=== PATIENT | male | born 1995 | race Caucasian/White ===

== ENCOUNTER 2017-01-21 22:54 | Inpatient (IN) | payer BC ==
[~2017-01-21] VITALS: Ht 193 cm; Wt 82.6 kg
[2017-01-21] MEDS ORDERED: SODIUM CHLORIDE 0.9% 1000ML 1,000 ML IV STA (23:51)
[2017-01-21] MEDS ORDERED: KETOROLAC TROMETHAMINE 30 MG/ML VIAL IV STA (23:51)
[2017-01-22 00:36] LABS: BASO % 0.1 %; BASO ABS # 0.01 K/uL (0-0.2); COMPLETE YES; HEMATOCRIT 40.4 % (42-52); IG% 0.4 %; LYMPH % 18.4 %; LYMPH ABS # 1.47 K/uL (1.2-3.4); MEAN CELL VOLUME 82.3 fL (80-100); MEAN CORPUSCULAR HEMOGLOBIN 28.3 pg (25-34); MEAN CORPUSCULAR HGB CONC 34.4 g/dl (32-36); MEAN PLATELET VOLUME 9.4 fL (7.4-10.4); NEUT % 70.1 %; PLATELET COUNT 289 K/uL (130-400); RED BLOOD COUNT 4.91 M/uL (4.7-6.1); WHITE BLOOD COUNT 8.01 K/uL (4.8-10.8)
[2017-01-22 00:46] LABS: URINE APPEARANCE CLEAR (CLEAR); URINE BILIRUBIN NEG (NEG); URINE COLOR YELLOW; URINE NITRITE NEG (NEG); URINE PH 5.5 (4.5-7.5); URINE SPECIFIC GRAVITY 1.001 (1.000-1.030); UROBILINOGEN NEG (NEG)
[2017-01-22 00:49] LABS: MANUAL MICROSCOPIC REQUIRED? NO; REVIEW REQ? NO
[2017-01-22 00:55] LABS: BUN/CREATININE RATIO 10.2 (10-20); CALCIUM 8.8 mg/dl (8.5-10.1); CREATININE 1.9 mg/dl (0.60-1.40); POTASSIUM 3.3 mmol/L (3.5-5.1)
[2017-01-22] MEDS ORDERED: SODIUM CHLORIDE 0.9% 1000ML 1,000 ML IV STA (01:29)
[2017-01-22] MEDS ORDERED: MAGNESIUM HYDROXIDE SUSP 30 ML UDC PO PRN (02:30)
[2017-01-22] MEDS ORDERED: ONDANSETRON INJ 2 MG/ML 2 ML VIAL IV PRN (02:30)
[2017-01-22] MEDS ORDERED: POLYETHYLENE (MIRALAX) 17 GM PACK PO PRN (02:30)
[2017-01-22] MEDS ORDERED: ALUMINUM/MAGNESIUM/SIMETH (MAALOX MAX) 30 ML UDC PO PRN (02:30)
[2017-01-22] MEDS ORDERED: ACETAMINOPHEN 325 MG TAB PO PRN (02:30)
[2017-01-22 03:46] LABS: LYME DISEASE AB IGG NEG (NEG); LYME DISEASE AB IGM NEG (NEG)
[2017-01-22 03:50] VITALS: BP 120/72; PULSE 45; TEMP 36.5; O2SAT 99; Ht 193 cm; Wt 82.6 kg
--- NOTE | 2017-01-22 03:50 | History and Physical ---
History & Physical Date & Time of Service: Jan 22, 2017 at 03:44 Chief Complaint: Back Pain, Constipation, Stomach Pain, No Appetite Primary Care Physician: No Doctor, Assigned History of Present Illness Source: patient This is a very pleasant 21-year-old male with no remarkable past medical history who presents with 1 week of right lower back pain. He notes being in his usual state of health until approximately one week ago when he started developing a alternating dull/sharp 7/10 back pain. Denies radiation of his symptoms anteriorly. He denies any alleviating or exacerbating factors at home. He stated that the pain is constant. He denies any dysuria or incontinence, but does feel that he has had some urinary frequency and nocturia since the back pain started. He denies blood in the urine He denies fevers chills or night sweats. He did vomit once in the past week, but denies persistence of nausea. He denies diarrhea, but has been constipated for the past 3 days His appetite has been poor since symptoms started He denies any weight changes Otherwise he denies any cardiorespiratory symptoms, including chest pain, shortness of breath, coughing, wheezing, palpitations, presyncope, orthopnea, lower extremity edema He denies starting or stopping any new medicines. He denies any drug use. He notes that he is participating in [employer] event this past weekend. He notes that he had no difficulty with this, though he does note that he was eating a lot of greasy food. 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 Physical Exam Vital Signs Date Time Temp Pulse Resp B/P Pulse Ox O2 Delivery O2 Flow Rate FiO2 01/22/17 01:36 50 18 137/70 98 01/22/17 01:02 58 01/21/17 23:04 37.3 95 18 131/92 97 Room Air General Appearance: WD/WN, no apparent distress Head: normocephalic, atraumatic Eyes: normal inspection, EOMI ENT: normal ENT inspection, hearing grossly normal, pharynx normal Neck: supple, no adenopathy, no JVD Respiratory/Chest: lungs clear, no respiratory distress Cardiovascular: regular rate, rhythm, no gallop, no murmur Abdomen/GI: normal bowel sounds, non tender, soft Back: normal inspection, no muscle spasm, + left CVA tenderness (mild, and certainly notes worse pain previously on the right) Extremities/Musculoskelatal: no calf tenderness, no pedal edema Neurologic/Psych: alert, normal mood/affect, oriented x 3 Skin: normal color, warm/dry, no rash Lymphatic: no adenopathy Diagnostics Laboratory Results Results Past 24 Hours Test 01/22/17 00:15 01/22/17 00:20 01/22/17 02:33 01/22/17 03:31 Range/Units Urine Color YELLOW Urine Appearance CLEAR CLEAR Urine pH 5.5 4.5-7.5 Urine Specific [place] 1.001 1.000-1.030 Urine Protein NEG NEG Urine Glucose (UA) NEG NEG Urine Ketones NEG NEG Urine Occult Blood TRACE NEG Urine Nitrite NEG NEG Urine Bilirubin NEG NEG Urine Urobilinogen NEG NEG Urine Leukocyte Esterase NEG NEG Urine WBC (Auto) 1-5 0-5 /hpf Urine RBC (Auto) 0-4 0-4 /hpf Urine Hyaline Casts (Auto) 0 0-5 /lpf Urine Epithelial Cells (Auto) 5-10 0-5 /lpf Urine Bacteria (Auto) NEG NEG White Blood Count 8.01 4.8-10.8 K/uL Red Blood Count 4.91 4.7-6.1 M/uL Hemoglobin 13.9 14.0-18.0 g/dL Hematocrit 40.4 42-52 % Mean Corpuscular Volume 82.3 80-100 fL Mean Corpuscular Hemoglobin 28.3 25-34 pg Mean Corpuscular Hemoglobin Concent 34.4 32-36 g/dl Platelet Count 289 130-400 K/uL Mean Platelet Volume 9.4 7.4-10.4 fL Neutrophils (%) (Auto) 70.1 % Lymphocytes (%) (Auto) 18.4 % Monocytes (%) (Auto) 10.0 % Eosinophils (%) (Auto) 1.0 % Basophils (%) (Auto) 0.1 % Neutrophils # (Auto) 5.62 1.4-6.5 K/uL Lymphocytes # (Auto) 1.47 1.2-3.4 K/uL Monocytes # (Auto) 0.80 0.11-0.59 K/uL Eosinophils # (Auto) 0.08 0-0.5 K/uL Basophils # (Auto) 0.01 0-0.2 K/uL RDW Standard Deviation 38.4 36.4-46.3 fL RDW Coefficient of Variation 12.7 11.5-14.5 % Immature Granulocyte % (Auto) 0.4 % Immature Granulocyte # (Auto) 0.03 0.00-0.02 K/uL Sodium Level 142 136-145 mmol/L Potassium Level 3.3 3.5-5.1 mmol/L Chloride Level 106 98-107 mmol/L Carbon Dioxide Level 28 21-32 mmol/L Anion Gap 8.0 3-11 mmol/L Blood Urea Nitrogen 19 7-18 mg/dl Creatinine 1.90 0.60-1.40 mg/dl Est Creatinine Clear Calc Drug Dose 73.1 ml/min Estimated GFR () 57.9 Estimated GFR (Non- 50.0 BUN/Creatinine Ratio 10.2 10-20 Random Glucose 98 70-99 mg/dl Osmolality 292 280-300 mOsm/kg Calcium Level 8.8 8.5-10.1 mg/dl Total Bilirubin 0.8 0.2-1 mg/dl Direct Bilirubin 0.2 0-0.2 mg/dl Aspartate Amino Transf (AST/SGOT) 9 15-37 U/L Alanine Aminotransferase (ALT/SGPT) 19 12-78 U/L Alkaline Phosphatase 56 45-117 U/L Total Creatine Kinase 141 39-308 U/L Total Protein 7.3 6.4-8.2 gm/dl Albumin 4.1 3.4-5.0 gm/dl Lipase 80 73-393 U/L Monoscreen NEG NEG Diagnostic Radiology CT abdomen Right lower quadrant mesenteric adenitis Hepatosplenomegaly Impression Assessment and Plan 21-year-old male who presents with acute kidney injury, and findings of hepatosplenomegaly on CT scan The relation between the 2 at this time is unclear. Reviewing his history there does not appear to be a familial history of hepatic or renal disease. He appears to be in relatively good health overall without any known medical conditions. At this time we will admit him for further workup. Our plan for him is as follows. Acute kidney injury - Creatinine 1.9; we do not have previous labs on him so baseline is unclear - CT scan does not reveal any notable findings, no stones or hydronephrosis - UA grossly unremarkable except for small amount of blood - CK pending for evaluation of rhabdomyolysis (Patient was at [employer] last week) - Urine and serum osmolality ordered - Urine electrolytes ordered - ESR and CRP to be checked with morning labs - IV rehydration with NSS + 20 mEq KCl at 125 ml/hr - Nephrology to be consult for additional recommendations on work-up Hepatosplenomegaly - No known history of hepatic disease - Notes minimal alcohol use; denies any drug use - Hepatitis panel ordered - Viral panel ordered: EBV, CMV, parvovirus, coxsackie - Lyme screen pending - No evidence of transaminitis; will follow daily CMP Mesenteric Adenitis - CT finding, may be cause/contributing factor to right-sided pain - Supportive management Hypokalemia - K 3.3 - Will rehydrate with NSS + 20 mEq KCl and follow labs DVT prophylaxis - SCD - NIRMAL stockings - Hold off on pharmacological anticoagulation at this time CODE STATUS - Level I full code - Designates his mother to be his substitute decision-maker if he cannot make decisions for himself Disposition - Med/Surg Level of Care Med/Surg Resuscitation Status FULL RESUSCITATION VTE Prophylaxis VTE Risk Assessment Done? Y/N: Yes Risk Level: Moderate Given or contraindicated: Treatment not indicated Assessment and Plan Attending Addendum: I have physically seen and examined this patient, have directed their medical care, have supervised the medical residents activities, and agree with the H&P as noted above, with the following changes: NONE The patient is awake, well-developed and adequately nourished, alert and oriented 3, normocephalic and atraumatic, lying in bed and in no acute distress. HEENT--PERRL, EOMI, mucous membranes and oropharynx dry. Neck--supple, no JVD or bruits, thyroid normal, trachea midline, no adenopathy. Heart--normal S1 and S2, no extra beats, no murmurs, rubs or gallops. Lungs--clear bilaterally with good air movement, no respiratory distress, no accessory muscle use. Abdomen--normal bowel sounds and soft, mildly tender epigastric area, and nondistended, no hernias or masses, no organomegaly. Extremities--no cyanosis, clubbing or edema. There are good distal pulses b/l. Dermatologic--normal skin turgor, normal color, warm and dry, no abnormal lymph nodes, no rash. Neurologic--cranial nerves II through XII grossly intact, motor and sensory examination normal. Rheumatologic--normal range of motion, nontender, muscles and joints. Psychiatric--normal affect. Assessment and Plan: Acute renal insufficiency--we'll hydrate with normal saline, and follow serial BMP and magnesium levels. He did recently participated at [employer], and even though his CK which has been added onto ED labs is normal, indicating no rhabdomyolysis, he did have a decreased oral intake during the dance which may have contributed to this acute process. CT of the abdomen and pelvis done without contrast does not show any significant kidney injury. Hepatosplenomegaly with normal laboratories--combined with his symptoms of fatigue and decreased oral intake, we will order a viral panel and EBV, CMV, parvovirus and coxsackie B virus, and hepatitis viral panel. Mesenteric adenitis--likely the cause of his decreased oral intake, most probably a viral process, and will be primarily treated with supportive therapy such as IV fluids.
[2017-01-22] MEDS ORDERED: SODIUM CHLORIDE 0.9% 1000ML 1,000 ML IV SCH (04:00)
--- NOTE | 2017-01-22 05:40 | EMERGENCY ROOM VISIT NOTE ---
History Report prepared by Crystalibfred: Jocelyn Mcbride Under the Supervision of: Dr. Jason Tellez M.D. First contact with patient: 23:48 Chief Complaint: FLANK PAIN Stated Complaint: BACK PAIN, CONSTIPATION, STOMACH PAIN, NO APPETITE History of Present Illness The patient is a 21 year old male who presents to the Emergency Room with complaints of waxing and waning right flank pain that began a few days ago. His current discomfort is a 7.5-8/10. It worsens with movement. The patient also complains of constipation, fatigue, decreased appetite, and intermittent nausea. He notes that he had an episode of vomiting 2 days ago but does not remember if his pain was intense at that time. He notes that he has been waking up in the middle of the night to urinate which is unusual for him. Currently, he has a "stomach ache" pain but denies and specific abdominal pain. He notes that there is a family history of appendicitis. He ate a small amount of salad about 8 hours ago and drank some water en route to the ED. Pt denies LOC, headache, fevers, chills, diaphoresis, visual changes, neck pain, chest pain, breathing difficulties, back pain, melena, hematochezia, numbness, weakness, lymphadenopathy, rash, or other complaints. Source of History: patient Onset: a few days ago Position: other (right flank) Symptom Intensity: 7.5-8/10 Timing: waxes/wanes Modifying Factors (Worsening): movement Associated Symptoms: + abdominal pain ("stomach ache"), + fatigue, + nausea , + urinary symptoms (slight increase in frequency), + vomiting (2 days ago) Note: Other symptoms: decreased appetite, constipation Review of Systems See HPI for pertinent positives and negatives. A total of ten systems were reviewed and were otherwise negative. Past Medical & Surgical Medical Problems: (1) Acute kidney injury (2) Hepatosplenomegaly (3) No Known Active Medical Problems Family History Appendicitis Social History Smoking Status: Never Smoker Housing Status: lives with roommate Occupation Status: [employer] student Current/Historical Medications No Active Prescriptions or Reported Meds Allergies Coded Allergies: No Known Allergies (Unverified , 01/22/17) Physical Exam Vital Signs Date Time Temp Pulse Resp B/P Pulse Ox O2 Delivery O2 Flow Rate FiO2 01/22/17 01:36 50 18 137/70 98 01/22/17 01:02 58 01/21/17 23:04 37.3 95 18 131/92 97 Room Air Physical Exam GENERAL: Awake, alert, well-appearing, in no distress HENT: Normocephalic, atraumatic. Oropharynx unremarkable. EYES: Normal conjunctiva. Sclera non-icteric. NECK: Supple. No nuchal rigidity. FROM. No JVD. RESPIRATORY: Clear to auscultation. CARDIAC: Regular rate, normal rhythm. Extremities warm and well perfused. Pulses equal. ABDOMEN: Soft, non-distended. Mild right lateral mid abdominal tenderness to palpation with some rebound. No guarding. No masses. RECTAL: Deferred. MUSCULOSKELETAL: Chest examination reveals no tenderness. The back is symmetrical on inspection without obvious abnormality. Right CVA tenderness to palpation. No joint edema. Right flank tenderness to palpation. LOWER EXTREMITIES: Calves are equal size bilaterally and non-tender. No edema. No discoloration. NEURO: Normal sensorium. No sensory or motor deficits noted. SKIN: No rash or jaundice noted. Medical Decision & Procedures ER Provider Diagnostic Interpretation: Radiology results as stated below per my review and radiologist interpretation. CT ABDOMEN & PELVIS: No renal calculi. No hydronephrosis. [id number] hepatosplenomegaly. Trace free fluid in the pelvis, nonspecific but considered abnormal in a male. The appendix is not definitively identified, but there are no pericecal inflammatory changes to suggest acute appendicitis. Prominence of mesenteric lymph nodes measuring up to 0.8 cm in short axis in the right lower quadrant, suggesting possible mesenteric adenitis. Evaluation of bowel limited by lack of oral contrast and underdistention, but there is no evidence of bowel obstruction. Radiologist: Leopoldo Sands MD Laboratory Results 01/22/17 00:20 Red Blood Count 4.91, Mean Corpuscular Volume 82.3, Mean Corpuscular Hemoglobin 28.3, Mean Corpuscular Hemoglobin Concent 34.4, Mean Platelet Volume 9.4, Neutrophils (%) (Auto) 70.1, Lymphocytes (%) (Auto) 18.4, Monocytes (%) (Auto) 10.0, Eosinophils (%) (Auto) 1.0, Basophils (%) (Auto) 0.1, Neutrophils # (Auto ) 5.62, Lymphocytes # (Auto) 1.47, Monocytes # (Auto) 0.80, Eosinophils # (Auto ) 0.08, Basophils # (Auto) 0.01 01/22/17 00:20 Test 01/22/17 00:15 01/22/17 00:20 01/22/17 02:33 Urine Color YELLOW Urine Appearance CLEAR (CLEAR) Urine pH 5.5 (4.5-7.5) Urine Specific [place] 1.001 (1.000-1.030) Urine Protein NEG (NEG) Urine Glucose (UA) NEG (NEG) Urine Ketones NEG (NEG) Urine Occult Blood TRACE (NEG) Urine Nitrite NEG (NEG) Urine Bilirubin NEG (NEG) Urine Urobilinogen NEG (NEG) Urine Leukocyte Esterase NEG (NEG) Urine WBC (Auto) 1-5 /hpf (0-5) Urine RBC (Auto) 0-4 /hpf (0-4) Urine Hyaline Casts (Auto) 0 /lpf (0-5) Urine Epithelial Cells (Auto) 5-10 /lpf (0-5) Urine Bacteria (Auto) NEG (NEG) White Blood Count 8.01 K/uL (4.8-10.8) Red Blood Count 4.91 M/uL (4.7-6.1) Hemoglobin 13.9 g/dL (14.0-18.0) Hematocrit 40.4 % (42-52) Mean Corpuscular Volume 82.3 fL (80-100) Mean Corpuscular Hemoglobin 28.3 pg (25-34) Mean Corpuscular Hemoglobin Concent 34.4 g/dl (32-36) Platelet Count 289 K/uL (130-400) Mean Platelet Volume 9.4 fL (7.4-10.4) Neutrophils (%) (Auto) 70.1 % Lymphocytes (%) (Auto) 18.4 % Monocytes (%) (Auto) 10.0 % Eosinophils (%) (Auto) 1.0 % Basophils (%) (Auto) 0.1 % Neutrophils # (Auto) 5.62 K/uL (1.4-6.5) Lymphocytes # (Auto) 1.47 K/uL (1.2-3.4) Monocytes # (Auto) 0.80 K/uL (0.11-0.59) Eosinophils # (Auto) 0.08 K/uL (0-0.5) Basophils # (Auto) 0.01 K/uL (0-0.2) RDW Standard Deviation 38.4 fL (36.4-46.3) RDW Coefficient of Variation 12.7 % (11.5-14.5) Immature Granulocyte % (Auto) 0.4 % Immature Granulocyte # (Auto) 0.03 K/uL (0.00-0.02) Anion Gap 8.0 mmol/L (3-11) Est Creatinine Clear Calc Drug Dose 73.1 ml/min Estimated GFR () 57.9 Estimated GFR (Non- 50.0 BUN/Creatinine Ratio 10.2 (10-20) Osmolality 292 mOsm/kg (280-300) Calcium Level 8.8 mg/dl (8.5-10.1) Total Bilirubin 0.8 mg/dl (0.2-1) Direct Bilirubin 0.2 mg/dl (0-0.2) Aspartate Amino Transf (AST/SGOT) 9 U/L (15-37) Alanine Aminotransferase (ALT/SGPT) 19 U/L (12-78) Alkaline Phosphatase 56 U/L (45-117) Total Creatine Kinase 141 U/L (39-308) Total Protein 7.3 gm/dl (6.4-8.2) Albumin 4.1 gm/dl (3.4-5.0) Lipase 80 U/L (73-393) Lyme Disease IgG Antibody NEG (NEG) Lyme Disease IgM Antibody NEG (NEG) Hepatitis B Surface Antigen NEG (NEG) Hepatitis C Antibody NEG (NEG) Monoscreen NEG (NEG) Laboratory results reviewed by me Medications Administered Medications (Trade) Dose Ordered Sig/Therese Route Start Time Stop Time Status Last Admin Dose Admin Sodium Chloride (Nss 1000ml) 1,000 ml @ 999 mls/hr Q1H1M STAT IV 01/21/17 23:51 01/22/17 00:51 DC 01/22/17 00:28 999 MLS/HR Ketorolac Tromethamine 10 mg 10 mg NOW STAT IV 01/21/17 23:51 01/21/17 23:53 DC 01/22/17 00:28 10 MG Sodium Chloride (Nss 1000ml) 1,000 ml @ 200 mls/hr Q5H STAT IV 01/22/17 01:29 01/22/17 03:54 DC 01/22/17 01:38 200 MLS/HR ED Course 2351: The patient was evaluated in room C6. A complete history and physical exam was performed. Ordered Toradol Inj 10 mg IV, NSS 1000 ml @ 999 mls/hr IV. 0125: Upon reexamination, the patient was feeling better. I discussed the test results and treatment plan with him. The patient will be evaluated for further management. 0129: Ordered NSS 1000 ml @ 200 mls/hr IV. 0230: I discussed the case with Dr. Rhys ALEXANDER Hospitalist. The patient will be evaluated for further management. Medical Decision Triage Nursing notes reviewed. The patient's presentation and history were concerning for flank pain. Etiologies such as renal colic, appendicitis, diverticulitis, mesenteric ischemia, aortic pathology, infections, inflammatory bowel disease, PUD, biliary pathology, UTI, as well as others were entertained. The patient was evaluated. He was uncomfortable. He requested something for pain. He was given a dose of IV Toradol. Urinalysis and blood work were performed. The patient underwent CT imaging. There is no definitive stone or emergent intra-abdominal process seen. Moderate stool and some mesenteric adenitis noted. The patient has some mild splenomegaly. His CBC was unremarkable. Chemistry panel was very concerning as his creatinine returned at 1.9. The patient was hydrated. Due to his acute kidney injury internal medicine was consulted for further evaluation and management. The patient was seen in the Emergency Room for further treatment. The chart was completed utilizing [employer] Speech voice recognition software. Grammatical errors, random word insertions, pronoun errors, and incomplete sentences are an occasional consequence of this system due to software limitations, ambient noise, and hardware issues. Any formal questions or concerns about the content, text, or information contained within the body of this dictation should be directly addressed to the physician for clarification. Consults Time Called: 0125 Consulting Physician: Dr. Rhys ALEXANDER Hospitalist Returned Call: 0230 I discussed the case with him. The patient will be evaluated for further management. Impression Primary Impression: Acute renal failure Additional Impression: Right flank pain Scribe Attestation The scribe's documentation has been prepared under my direction and personally reviewed by me in its entirety. I confirm that the note above accurately reflects all work, treatment, procedures, and medical decision making performed by me. Departure Information Dispostion Being Evaluated By Hospitalist Prescriptions No Active Prescriptions or Reported Meds Referrals No Doctor, Assigned (PCP) Patient Instructions My [facility] Problem Qualifiers
[2017-01-22] MEDS: NSS + 20MEQ KCL 1000ML 1,000 ML IV SCH ×3 (06:24→21:52)
[2017-01-22 07:37] VITALS: BP 122/78; PULSE 41; TEMP 36.4; O2SAT 99
--- NOTE | 2017-01-22 07:37 | DIAGNOSTIC IMAGING REPORT ---
ABDOMEN AND PELVIS CT WITHOUT CONTRAST CT DOSE: 694.89 mGy.cm HISTORY: Right-sided flank pain. TECHNIQUE: Multiaxial CT images of the abdomen and pelvis were performed without the use of intravenous and oral contrast according to the standard department stone protocol. COMPARISON STUDY: None. FINDINGS: The lung bases are clear. The unenhanced liver, gallbladder, pancreas, and adrenal glands are unremarkable. No renal stones or hydronephrosis. Suboptimal evaluation for bowel pathology due to the lack of intravenous and oral contrast. However, there is no definite bowel wall thickening or obstruction. Trace pelvic free fluid. Impression difficult to identify but likely resides within a retrocecal location and is normal in caliber. No periappendiceal inflammatory change to suggest acute appendicitis. A few prominent mesenteric lymph nodes. No retroperitoneal lymphadenopathy. Spleen is enlarged measuring 15 cm in length. No bladder wall thickening. No suspicious lytic or blastic osseous lesions. IMPRESSION: 1. No renal stones or hydronephrosis. 2. Suboptimal evaluation for bowel pathology. However, no definite bowel wall thickening or obstruction. 3. The appendix appears to be located within a retrocecal location and is within normal limits. 4. Trace pelvic free fluid. This is nonspecific but could be abnormal in a male. 5. Splenomegaly. Electronically signed by: Jorge Franklin M.D. 01/22/2017 7:36 AM Dictated Date/Time: 01/22/2017 7:28 AM
--- NOTE | 2017-01-22 10:15 | Family Medicine Progress Note ---
Progress Note Date of Service Jan 22, 2017.
[2017-01-22 10:53] LABS: BUN/CREATININE RATIO 9.5 (10-20); CALCIUM 8.2 mg/dl (8.5-10.1); CREATININE 1.7 mg/dl (0.60-1.40); POTASSIUM 3.5 mmol/L (3.5-5.1)
[2017-01-22 10:54] LABS: URINE APPEARANCE CLEAR (CLEAR); URINE BILIRUBIN NEG (NEG); URINE COLOR YELLOW; URINE NITRITE NEG (NEG); URINE PH 5.5 (4.5-7.5); URINE SPECIFIC GRAVITY 1.006 (1.000-1.030); UROBILINOGEN NEG (NEG)
[2017-01-22 10:57] LABS: MANUAL MICROSCOPIC REQUIRED? NO; REVIEW REQ? NO
[2017-01-22 11:29] LABS: BENZODIAZEPINE, URINE NEG (NEG); COCAINE,URINE NEG (NEG); PHENCYCLIDINE, URINE NEG (NEG)
--- NOTE | 2017-01-22 11:32 | Nephrology Consultation ---
Nephrology Consultation Date & Providers Date of Consultation: Jan 22, 2017. 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 Pain was intermittent lasting a few hrs and ranged in between 7 1/2 to 8 intensity. No known alleviating or aggravating factors. He decided to come in due to increasing severity /frequency of pain. He also reports fatigue and 1 episode of N/V on 01/19. He has been taking Ibuprofen since 01/15, He had been taking 2 pills/ day since Wednesday increased his dosage to 2 pills 2-3 x/day as of 3 days ago. Patient denies fevers/chills, change in stool, susan abdominal pain, hematuria, urgency, frequency, dysuria. He also denies recently strenuous activity other than his typical 2x/wk at the gym. He denies muscle pain, fatigue. 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 Patient has no previous hx of similar symptoms. No Past medical hx or Family Hx of Renal disease or Thrombosis. Patient is being consulted for MUSA with Cr of 1.9 on arrival. Past Medical/Surgical History Medical: Nil Surgical: Rhinoseptoplasty Allergies Coded Allergies: No Known Allergies (Unverified , 01/22/17) Inpatient Medications Current Inpatient Medications Medications (Trade) Dose Ordered Sig/Therese Route Start Time Stop Time Status Last Admin Dose Admin Acetaminophen (Tylenol Tab) 650 mg Q4H PRN PO 01/22/17 02:30 02/21/17 02:29 Al Hydrox/Mg Hydrox/Simethicone (Maalox Max Susp) 15 ml Q4H PRN PO 01/22/17 02:30 02/21/17 02:29 Magnesium Hydroxide (Milk Of Magnesia Susp) 30 ml Q6H PRN PO 01/22/17 02:30 02/21/17 02:29 Polyethylene (Miralax Powder Packet) 17 gm DAILY PRN PO 01/22/17 02:30 02/21/17 02:29 Ondansetron HCl 4 mg 4 mg Q6H PRN IV 01/22/17 02:30 02/21/17 02:29 Potassium Chloride/Sodium Chloride (Nss + 20meq KCl 1000ml) 1,000 ml @ 125 mls/hr Q8H IV 01/22/17 06:15 02/21/17 06:14 01/22/17 06:24 125 MLS/HR Family History Appendicitis Social History Smoking Status: Never Smoker Smokeless Tobacco Use: No Alcohol Use: socially (has not comsumed alcohol in 1 month) Drug Use: none Marital Status: single Housing Status: lives with roommate Occupation: [employer] student Review of Systems Constitutional: + fatigue, No chills, No fever, No sweats, No weakness, No weight loss ENT: No nasal symptoms, No sore throat Respiratory: No cough, No shortness of breath, No sputum Cardiovascular: No chest pain, No edema, No palpitations Abdomen: + nausea, No constipation, No diarrhea, No pain, No vomiting (x1 ( resolved)) Musculoskeletal: No calf pain, No muscle pain, No swelling Genitourinary - Male: No dysuria, No hematuria, No urinary frequency, No urinary urgency Neurologic: No numbness/tingling, No weakness Psychiatric: No substance abuse Integumentary: No itch, No rash Allergic / Immunologic: No environmental allergies, No food allergies, No seasonal allergies A complete review of systems was performed. Pertinent positives are noted above. All other systems are negative. Physical Exam Date Time Temp Pulse Resp B/P Pulse Ox O2 Delivery O2 Flow Rate FiO2 01/22/17 08:09 Room Air 01/22/17 07:37 36.4 41 14 122/78 99 Room Air 01/22/17 03:50 36.5 45 14 120/72 99 Room Air 01/22/17 03:50 99 Room Air 01/22/17 01:36 50 18 137/70 98 01/22/17 01:02 58 01/21/17 23:04 37.3 95 18 131/92 97 Room Air General Appearance: WD/WN, + mild distress Head: normocephalic, atraumatic Eyes: PERRL, EOMI Neck: supple, no JVD, trachea midline Respiratory/Chest: lungs clear, normal breath sounds, no respiratory distress Cardiovascular: regular rate, rhythm, no edema, no murmur, normal peripheral pulses Abdomen/GI: normal bowel sounds, non tender, soft, + pertinent finding (NO frnak abdominal tendernes, pain ellicited in the Right lower back on abdominal palpation) Back: no muscle spasm, normal range of motion, + right CVA tenderness Extremities/Musculoskelatal: no calf tenderness, no pedal edema, + pertinent finding Neurologic/Psych: alert, normal mood/affect, oriented x 3 Skin: normal color, warm/dry Laboratory Results Last 24 Hours Test 01/22/17 00:00 01/22/17 00:15 01/22/17 00:20 01/22/17 02:33 Urine Color YELLOW YELLOW Urine Appearance CLEAR CLEAR Urine pH 5.5 5.5 Urine Specific [place] 1.006 1.001 Urine Protein TRACE NEG Urine Glucose (UA) NEG NEG Urine Ketones NEG NEG Urine Occult Blood NEG TRACE Urine Nitrite NEG NEG Urine Bilirubin NEG NEG Urine Urobilinogen NEG NEG Urine Leukocyte Esterase NEG NEG Urine WBC (Auto) 1-5 /hpf 1-5 /hpf Urine RBC (Auto) 0-4 /hpf 0-4 /hpf Urine Hyaline Casts (Auto) 1-5 /lpf 0 /lpf Urine Epithelial Cells (Auto) 10-20 /lpf 5-10 /lpf Urine Bacteria (Auto) NEG NEG White Blood Count 8.01 K/uL Red Blood Count 4.91 M/uL Hemoglobin 13.9 g/dL Hematocrit 40.4 % Mean Corpuscular Volume 82.3 fL Mean Corpuscular Hemoglobin 28.3 pg Mean Corpuscular Hemoglobin Concent 34.4 g/dl Platelet Count 289 K/uL Mean Platelet Volume 9.4 fL Neutrophils (%) (Auto) 70.1 % Lymphocytes (%) (Auto) 18.4 % Monocytes (%) (Auto) 10.0 % Eosinophils (%) (Auto) 1.0 % Basophils (%) (Auto) 0.1 % Neutrophils # (Auto) 5.62 K/uL Lymphocytes # (Auto) 1.47 K/uL Monocytes # (Auto) 0.80 K/uL Eosinophils # (Auto) 0.08 K/uL Basophils # (Auto) 0.01 K/uL RDW Standard Deviation 38.4 fL RDW Coefficient of Variation 12.7 % Immature Granulocyte % (Auto) 0.4 % Immature Granulocyte # (Auto) 0.03 K/uL Sodium Level 142 mmol/L Potassium Level 3.3 mmol/L Chloride Level 106 mmol/L Carbon Dioxide Level 28 mmol/L Anion Gap 8.0 mmol/L Blood Urea Nitrogen 19 mg/dl Creatinine 1.90 mg/dl Est Creatinine Clear Calc Drug Dose 73.1 ml/min Estimated GFR () 57.9 Estimated GFR (Non- 50.0 BUN/Creatinine Ratio 10.2 Random Glucose 98 mg/dl Osmolality 292 mOsm/kg Calcium Level 8.8 mg/dl Total Bilirubin 0.8 mg/dl Direct Bilirubin 0.2 mg/dl Aspartate Amino Transf (AST/SGOT) 9 U/L Alanine Aminotransferase (ALT/SGPT) 19 U/L Alkaline Phosphatase 56 U/L Total Creatine Kinase 141 U/L Total Protein 7.3 gm/dl Albumin 4.1 gm/dl Lipase 80 U/L Lyme Disease IgG Antibody NEG Lyme Disease IgM Antibody NEG Hepatitis B Surface Antigen NEG Hepatitis C Antibody NEG Monoscreen NEG Test 01/22/17 07:11 01/22/17 10:16 Erythrocyte Sedimentation Rate 3 mm/hr C-Reactive Protein 0.39 mg/dl Sodium Level 145 mmol/L Potassium Level 3.5 mmol/L Chloride Level 111 mmol/L Carbon Dioxide Level 28 mmol/L Anion Gap 6.0 mmol/L Blood Urea Nitrogen 16 mg/dl Creatinine 1.70 mg/dl Est Creatinine Clear Calc Drug Dose 81.7 ml/min Estimated GFR () 66.3 Estimated GFR (Non- 57.2 BUN/Creatinine Ratio 9.5 Random Glucose 89 mg/dl Calcium Level 8.2 mg/dl Impression 21 yo M presented with 4 day hx of Acute RT lower back pain, N/V, Splenomegaly admitted with MUSA with Cr 1.9 MUSA - Cr of 1.9 on arrival, BUN/Cr ratio of 10.2 -UA with trace hematuria, no proteinuria, no casts - no baseline Cr available, no known previous hx of renal problems - MUSA most likely secondary to NSAID induced Tubulointerstitial nephritis. Glomerulonephritis unlikely given lack of proteinuria or significant hematuria. - Cannot rule out Prerenal secondary to dehydration, ATN -Rhabdomyolysis unlikely given normal CPK -F/u repeat PRP, urine Na, cr to calculate FENA. - Continue IV hydration Hypokalemia - 3.3 on arrival - agree with IV hydration 20 meq K -F/u Repeat PRP Back Pain s/p Toradol injection pain has improved significantly -Ct Abdomen pelvis negative for Renal stones, making this etiology of pain unlikely. Renal vein thrombosis considered but given lack of significant hematuria remains unlikely. -Pain may be musculoskeletal in origin and would be consistent with exam findings -Continue to monitor Splenomegaly etiology unknown CMV, EBV, Lyme disease, Parvo virus B19 coxsackie pending Mesenteric Adenitis -management per primary team Carlos Enrique Cabrales, PGY 1 Patient was seen and examined with Dr. Aaron saucedo 1 resident. discussed that history, physical exam findings and assessment and plan in detail. Agree with above documentation. 21-year-old young male with no significant past medical history, has not been on any medication, presented to the hospital with Rt flank pain, 1 episode of nausea and vomiting for 3-4 days. On admission imaging study with CT abdomen pelvis was unremarkable except finding of mild splenomegaly and masenteric adenitis. On admission he was found to have acute kidney injury, creatinine 1.9 and hypokalemia with no prior history of chronic kidney disease. Urinalysis was negative for significant proteinuria, pyuria or hematuria. patient reports taking NSAID for last 1 week for the flank pain. No prior history of recurrent hematuria, nonsmoker, no family history of hematuria, chronic kidney disease or end-stage renal disease. vital sign remained stable throughout hospital course, physical exam finding unremarkable except point tenderness in Rt flank. Differentials at this point include prerenal with nausea vomiting and NSAID use, NSAID induced tubular interstitial nephritis or other intrinsic renal disease which however seems less likely. With recent history of some nausea vomiting, GI symptom concern for HSP or IgA considering young age, seems less likely with no significant hematuria proteinuria. Unclear etiology for the new finding of mild splenomegaly but no retroperitoneal lymphadenopathy. no recent change in weight or other systemic symptoms. Repeat lab showed creatinine slightly improved to 1.7, other electrolyte acceptable. -- Continue to monitor renal function with renal panel in a.m., would not consider any other workup at this point -- unclear etiology for mesenteric adenitis and splenomegaly, management per primary team. Will follow. Resident Tracking Resident Involvement: Resident Care Provided Care Provided: [facility]
--- NOTE | 2017-01-22 15:32 | Progress Note ---
Subjective Date of Service: Jan 22, 2017. Subjective Pt evaluation today including: conversation w/ patient, conversation w/ family (mother Jessica over phone), physical exam, lab review, review of studies, conversation w/ hematology oncology consultant, review of inpatient medication list Pain: pain resolved PO Intake: adequate Voiding: no voiding problems patient resting comfortably, no issues overnight still with flank pain but less intense eating and drinking well, urinating a lot stated that he felt normal prior to [employer], was on his feet for 40 hours developed flank pain afterwards, took NSAIDs for the pain Problem List Medical Problems: (1) Acute renal failure Status: Acute (2) Right flank pain Status: Acute Review of Systems Constitutional: + fatigue, + weakness Abdomen: + pain (flank) All Other Systems: Reviewed and Negative Medications Current Inpatient Medications Medications (Trade) Dose Ordered Sig/Therese Route Start Time Stop Time Status Last Admin Dose Admin Acetaminophen (Tylenol Tab) 650 mg Q4H PRN PO 01/22/17 02:30 02/21/17 02:29 Al Hydrox/Mg Hydrox/Simethicone (Maalox Max Susp) 15 ml Q4H PRN PO 01/22/17 02:30 02/21/17 02:29 Magnesium Hydroxide (Milk Of Magnesia Susp) 30 ml Q6H PRN PO 01/22/17 02:30 02/21/17 02:29 Polyethylene (Miralax Powder Packet) 17 gm DAILY PRN PO 01/22/17 02:30 02/21/17 02:29 Ondansetron HCl 4 mg 4 mg Q6H PRN IV 01/22/17 02:30 02/21/17 02:29 Potassium Chloride/Sodium Chloride (Nss + 20meq KCl 1000ml) 1,000 ml @ 125 mls/hr Q8H IV 01/22/17 06:15 02/21/17 06:14 01/22/17 14:22 125 MLS/HR Objective Vital Signs Date Time Temp Pulse Resp B/P Pulse Ox O2 Delivery O2 Flow Rate FiO2 01/22/17 08:09 Room Air 01/22/17 07:37 36.4 41 14 122/78 99 Room Air 01/22/17 03:50 36.5 45 14 120/72 99 Room Air 01/22/17 03:50 99 Room Air 01/22/17 01:36 50 18 137/70 98 01/22/17 01:02 58 01/21/17 23:04 37.3 95 18 131/92 97 Room Air Physical Exam General Appearance: WD/WN, no apparent distress Eyes: normal inspection, EOMI, sclerae normal ENT: normal ENT inspection, hearing grossly normal, pharynx normal Neck: supple, no adenopathy, no JVD, trachea midline Respiratory/Chest: chest non-tender, lungs clear, normal breath sounds, no respiratory distress, no accessory muscle use Cardiovascular: regular rate, rhythm, no edema, no gallop, no JVD, no murmur Abdomen: normal bowel sounds, non tender, soft, no organomegaly, + pertinent finding (no CVA tenderness) Extremities: normal range of motion, non-tender, normal inspection, no pedal edema, no calf tenderness, pelvis stable Neurologic/Psychiatric: commercial credit head II-XII nml as tested, no motor/sensory deficits, alert, normal mood/affect, oriented x 3 Skin: normal color, warm/dry, no rash Lymphatic: no adenopathy Laboratory Results Last 24 Hours Test 01/22/17 00:00 01/22/17 00:15 01/22/17 00:20 01/22/17 02:33 Urine Color YELLOW YELLOW Urine Appearance CLEAR CLEAR Urine pH 5.5 5.5 Urine Specific [place] 1.006 1.001 Urine Protein TRACE NEG Urine Glucose (UA) NEG NEG Urine Ketones NEG NEG Urine Occult Blood NEG TRACE Urine Nitrite NEG NEG Urine Bilirubin NEG NEG Urine Urobilinogen NEG NEG Urine Leukocyte Esterase NEG NEG Urine WBC (Auto) 1-5 /hpf 1-5 /hpf Urine RBC (Auto) 0-4 /hpf 0-4 /hpf Urine Hyaline Casts (Auto) 1-5 /lpf 0 /lpf Urine Epithelial Cells (Auto) 10-20 /lpf 5-10 /lpf Urine Bacteria (Auto) NEG NEG Urine Osmolality 310 mOms/kg Urine Random Creatinine 79.0 mg/dl Urine Random Sodium 63 mEq/L Urine Random Potassium 14.9 mEq/L Urine Random Chloride 62 mEq/L Urine Opiates Screen NEG Urine Methadone, Qualitative NEG Urine Barbiturates NEG Urine Phencyclidine (PCP) Level NEG Ur Amphetamine/Methamphetamine NEG MDMA (Ecstasy) Screen NEG Urine Benzodiazepines Screen NEG Urine Cocaine Metabolite NEG Urine Marijuana (THC) NEG White Blood Count 8.01 K/uL Red Blood Count 4.91 M/uL Hemoglobin 13.9 g/dL Hematocrit 40.4 % Mean Corpuscular Volume 82.3 fL Mean Corpuscular Hemoglobin 28.3 pg Mean Corpuscular Hemoglobin Concent 34.4 g/dl Platelet Count 289 K/uL Mean Platelet Volume 9.4 fL Neutrophils (%) (Auto) 70.1 % Lymphocytes (%) (Auto) 18.4 % Monocytes (%) (Auto) 10.0 % Eosinophils (%) (Auto) 1.0 % Basophils (%) (Auto) 0.1 % Neutrophils # (Auto) 5.62 K/uL Lymphocytes # (Auto) 1.47 K/uL Monocytes # (Auto) 0.80 K/uL Eosinophils # (Auto) 0.08 K/uL Basophils # (Auto) 0.01 K/uL RDW Standard Deviation 38.4 fL RDW Coefficient of Variation 12.7 % Immature Granulocyte % (Auto) 0.4 % Immature Granulocyte # (Auto) 0.03 K/uL Sodium Level 142 mmol/L Potassium Level 3.3 mmol/L Chloride Level 106 mmol/L Carbon Dioxide Level 28 mmol/L Anion Gap 8.0 mmol/L Blood Urea Nitrogen 19 mg/dl Creatinine 1.90 mg/dl Est Creatinine Clear Calc Drug Dose 73.1 ml/min Estimated GFR () 57.9 Estimated GFR (Non- 50.0 BUN/Creatinine Ratio 10.2 Random Glucose 98 mg/dl Osmolality 292 mOsm/kg Calcium Level 8.8 mg/dl Total Bilirubin 0.8 mg/dl Direct Bilirubin 0.2 mg/dl Aspartate Amino Transf (AST/SGOT) 9 U/L Alanine Aminotransferase (ALT/SGPT) 19 U/L Alkaline Phosphatase 56 U/L Total Creatine Kinase 141 U/L Total Protein 7.3 gm/dl Albumin 4.1 gm/dl Lipase 80 U/L Lyme Disease IgG Antibody NEG Lyme Disease IgM Antibody NEG Hepatitis B Surface Antigen NEG Hepatitis C Antibody NEG Monoscreen NEG Test 01/22/17 07:11 01/22/17 10:16 Erythrocyte Sedimentation Rate 3 mm/hr C-Reactive Protein 0.39 mg/dl Sodium Level 145 mmol/L Potassium Level 3.5 mmol/L Chloride Level 111 mmol/L Carbon Dioxide Level 28 mmol/L Anion Gap 6.0 mmol/L Blood Urea Nitrogen 16 mg/dl Creatinine 1.70 mg/dl Est Creatinine Clear Calc Drug Dose 81.7 ml/min Estimated GFR () 66.3 Estimated GFR (Non- 57.2 BUN/Creatinine Ratio 9.5 Random Glucose 89 mg/dl Calcium Level 8.2 mg/dl Assessment and Plan 21-year-old male who presents with acute kidney injury, and findings of splenomegaly on CT scan Acute kidney injury: Cr initially 1.9, down to 1.7 over 12 hours with fluids, will repeat in the AM, making good urine based on his story of being normal prior to [facility], suspect a degree of rhabdomyolysis earlier in the week, concurrent use of NSAIDs his urine was + blood but no RBC, still with trace myoglobin? also, the NSAIDs could have caused ATN, tubular interstitial nephritis? full work up sent, reference labs appreciate nephrology consult continue fluids over night and repeat labs in the AM Splenomegaly (NOT hepatosplenomegaly as previously documented, live on CT scan was described as normal) could be a result of viral infection, does have mild tenderness LUQ, none in RUQ also with mesenteric adenitis, viral? viral work up sent out does have a h/o [place] in the past normal CBC Mesenteric Adenitis - CT finding, may be cause/contributing factor to right-sided pain - Supportive management Hypokalemia - K 3.3 - Will rehydrate with NSS + 20 mEq KCl and follow labs - resolved DVT prophylaxis - SCD - NIRMAL stockings - Hold off on pharmacological anticoagulation at this time CODE STATUS - Level I full code - Designates his mother to be his substitute decision-maker if he cannot make decisions for himself
[2017-01-22 15:46] VITALS: BP 114/75; PULSE 60; TEMP 36.7; O2SAT 99
[2017-01-22 23:24] VITALS: BP 145/75; PULSE 44; TEMP 36.4; O2SAT 97
[2017-01-23] MEDS: NSS + 20MEQ KCL 1000ML 1,000 ML IV SCH ×3 (05:38→22:00)
[2017-01-23 07:32] VITALS: BP 143/83; PULSE 59; TEMP 36.8; O2SAT 98
[2017-01-23 08:12] LABS: BASO % 0.1 %; BASO ABS # 0.01 K/uL (0-0.2); COMPLETE YES; EOS % 2.2 %; HEMATOCRIT 37.6 % (42-52); IG% 0.1 %; LYMPH % 20.7 %; LYMPH ABS # 1.48 K/uL (1.2-3.4); MEAN CELL VOLUME 81.2 fL (80-100); MEAN CORPUSCULAR HEMOGLOBIN 28.3 pg (25-34); MEAN CORPUSCULAR HGB CONC 34.8 g/dl (32-36); MEAN PLATELET VOLUME 9.7 fL (7.4-10.4); MONO % 7.1 %; NEUT % 69.8 %; PLATELET COUNT 233 K/uL (130-400); RED BLOOD COUNT 4.63 M/uL (4.7-6.1); WHITE BLOOD COUNT 7.16 K/uL (4.8-10.8)
[2017-01-23 08:39] LABS: BUN/CREATININE RATIO 6.4 (10-20); CALCIUM 8.7 mg/dl (8.5-10.1); CREATININE 1.7 mg/dl (0.60-1.40); POTASSIUM 3.6 mmol/L (3.5-5.1)
[2017-01-23 08:41] LABS: ALB/GLOB RATIO 1.1 (0.9-2)
--- NOTE | 2017-01-23 10:21 | Nephrology Progress Note ---
Nephrology Progress Note Date of Service Jan 23, 2017. 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 On Wednesday01/18/17 he developed right flank discomfort. He describes this as a nagging back pain. He began taking ibuprofen. His discomfort failed to improve and actually worsened. He participated in [employer] but was not overly physically active. He was concerned that he was constipated and could have acute appendicitis. He presented to the [facility] ED 01/22/17 for evaluation. He required IV Toradol for pain control. Serum creatinine was found to be elevated at 1.9. Contrast negative CT did not show appendicitis or acute renal pathology. He was found to have mild splenomegaly. Urine sediment was bland. CPK was normal. Mr. Dickerson did have one episode of emesis this morning. He otherwise feels well. He currently denies fever, angina, dyspnea or abdominal pain. He reports that his flank discomfort has greatly improved. He has had brisk urine output. Review of Systems Constitutional: No fever Cardiovascular: No angina Respiratory: No dyspnea at rest Abdomen: + vomiting, No pain Genitourinary - Male: No dysuria, No gross hematuria Extremities: No leg edema A complete review of systems was performed. Pertinent positives are noted above. All other systems are negative. Vital Signs Last 8 Hrs Date Time Temp Pulse Resp B/P Pulse Ox O2 Delivery O2 Flow Rate FiO2 01/23/17 07:32 36.8 59 18 143/83 98 Room Air 01/23/17 06:58 Room Air I & O 24-Hour Column 01/23/17 08:00 Intake Total 3504 ml Output Total 4375 ml Balance -871 ml Last Recorded Weight Weight (Kilograms): 82.600 Physical Exam General Appearance: no apparent distress Head: normocephalic, atraumatic Eyes: PERRL Neck: no adenopathy Respiratory/Chest: lungs clear, no respiratory distress Cardiovascular: regular rate, rhythm, no murmur Abdomen/GI: normal bowel sounds, non tender, soft Extremities/Musculoskelatal: no calf tenderness, no pedal edema Neurologic/Psych: alert, oriented x 3 Family History Appendicitis Social History Smokeless Tobacco Use: No Alcohol Use: socially (has not comsumed alcohol in 1 month) Drug Use: none Marital Status: single Housing Status: lives with roommate Occupation: [employer] student Laboratory Results Past 24 Hours 01/23/17 07:15 Red Blood Count 4.63, Mean Corpuscular Volume 81.2, Mean Corpuscular Hemoglobin 28.3, Mean Corpuscular Hemoglobin Concent 34.8, Mean Platelet Volume 9.7, Neutrophils (%) (Auto) 69.8, Lymphocytes (%) (Auto) 20.7, Monocytes (%) (Auto) 7.1, Eosinophils (%) (Auto) 2.2, Basophils (%) (Auto) 0.1, Neutrophils # (Auto) 4.99, Lymphocytes # (Auto) 1.48, Monocytes # (Auto) 0.51, Eosinophils # (Auto) 0.16, Basophils # (Auto) 0.01 01/22/17 10:16 01/23/17 07:15 Test 01/22/17 10:16 01/23/17 07:15 Anion Gap 6.0 mmol/L (3-11) 7.0 mmol/L (3-11) Est Creatinine Clear Calc Drug Dose 81.7 ml/min 81.7 ml/min Estimated GFR () 66.3 66.3 Estimated GFR (Non- 57.2 57.2 BUN/Creatinine Ratio 9.5 (10-20) 6.4 (10-20) Calcium Level 8.2 mg/dl (8.5-10.1) 8.7 mg/dl (8.5-10.1) White Blood Count 7.16 K/uL (4.8-10.8) Red Blood Count 4.63 M/uL (4.7-6.1) Hemoglobin 13.1 g/dL (14.0-18.0) Hematocrit 37.6 % (42-52) Mean Corpuscular Volume 81.2 fL (80-100) Mean Corpuscular Hemoglobin 28.3 pg (25-34) Mean Corpuscular Hemoglobin Concent 34.8 g/dl (32-36) Platelet Count 233 K/uL (130-400) Mean Platelet Volume 9.7 fL (7.4-10.4) Neutrophils (%) (Auto) 69.8 % Lymphocytes (%) (Auto) 20.7 % Monocytes (%) (Auto) 7.1 % Eosinophils (%) (Auto) 2.2 % Basophils (%) (Auto) 0.1 % Neutrophils # (Auto) 4.99 K/uL (1.4-6.5) Lymphocytes # (Auto) 1.48 K/uL (1.2-3.4) Monocytes # (Auto) 0.51 K/uL (0.11-0.59) Eosinophils # (Auto) 0.16 K/uL (0-0.5) Basophils # (Auto) 0.01 K/uL (0-0.2) RDW Standard Deviation 37.9 fL (36.4-46.3) RDW Coefficient of Variation 12.7 % (11.5-14.5) Immature Granulocyte % (Auto) 0.1 % Immature Granulocyte # (Auto) 0.01 K/uL (0.00-0.02) Total Bilirubin 0.9 mg/dl (0.2-1) Aspartate Amino Transf (AST/SGOT) 11 U/L (15-37) Alanine Aminotransferase (ALT/SGPT) 16 U/L (12-78) Alkaline Phosphatase 49 U/L (45-117) Total Protein 6.3 gm/dl (6.4-8.2) Albumin 3.3 gm/dl (3.4-5.0) Globulin 3.0 gm/dl (2.5-4.0) Albumin/Globulin Ratio 1.1 (0.9-2) Allergies Coded Allergies: No Known Allergies (Unverified , 01/22/17) Medications Current Inpatient Medications Medications (Trade) Dose Ordered Sig/Therese Route Start Time Stop Time Status Last Admin Dose Admin Acetaminophen (Tylenol Tab) 650 mg Q4H PRN PO 01/22/17 02:30 02/21/17 02:29 01/22/17 19:43 650 MG Al Hydrox/Mg Hydrox/Simethicone (Maalox Max Susp) 15 ml Q4H PRN PO 01/22/17 02:30 02/21/17 02:29 Magnesium Hydroxide (Milk Of Magnesia Susp) 30 ml Q6H PRN PO 01/22/17 02:30 02/21/17 02:29 01/22/17 19:43 30 ML Polyethylene (Miralax Powder Packet) 17 gm DAILY PRN PO 01/22/17 02:30 02/21/17 02:29 Ondansetron HCl 4 mg 4 mg Q6H PRN IV 2/24/17 02:30 02/21/17 02:29 Potassium Chloride/Sodium Chloride (Nss + 20meq KCl 1000ml) 1,000 ml @ 125 mls/hr Q8H IV 01/22/17 06:15 02/21/17 06:14 01/23/17 05:38 125 MLS/HR Impression (1) Acute kidney injury (2) Hepatosplenomegaly (3) Right flank pain 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 He has had recent exposure to NSAID therapy. Urine sediment is benign. Urinary protein excretion is normal. Contrast negative abdominal CT was negative for renal obstruction. Patient remains nonoliguric. Recommendations MUSA: -- Probable hemodynamic injury or AIN related to NSAID use -- [place] urine sediment. No significant proteinuria -- No renal obstruction on abdominal imaging -- Remains nonoliguric -- Volume status and electrolyte balance remain acceptable -- Recommend continued hospitalization for IV hydration and monitoring until creatinine < 1.5 -- Will recheck PRP this afternoon & again in am -- Patient's parents (Jessica) updated via telephone this am BACK PAIN: -- Subjectively improved this am. Monitor clinically GI: -- Patient has mild splenomegally. CMV, EBV, Lyme disease, Parvo virus B19 coxsackie studies pending -- CT reports a few enlarged mesenteric lymph nodes. No bowel wall thickening or appendicitis. Monitor clinically
[2017-01-23 15:05] LABS: BUN/CREATININE RATIO 5.6 (10-20); CALCIUM 8.3 mg/dl (8.5-10.1); CREATININE 1.9 mg/dl (0.60-1.40); POTASSIUM 3.8 mmol/L (3.5-5.1)
--- NOTE | 2017-01-23 15:25 | Progress Note ---
Subjective Date of Service: Jan 23, 2017. Subjective Pt evaluation today including: conversation w/ patient, physical exam, lab review, review of studies, conversation w/ consultant intern, review of inpatient medication list Pain: no pain today PO Intake: adequate Voiding: no voiding problems patient wants to go home however, discussed that Cr went up to 1.9 instead of going down, was 1.7 this AM his flank pain is resolved, eating and drinking well, making adequate urine Problem List Medical Problems: (1) Acute renal failure Status: Acute (2) Right flank pain Status: Acute Review of Systems All Other Systems: Reviewed and Negative Medications Current Inpatient Medications Medications (Trade) Dose Ordered Sig/Therese Route Start Time Stop Time Status Last Admin Dose Admin Acetaminophen (Tylenol Tab) 650 mg Q4H PRN PO 01/22/17 02:30 02/21/17 02:29 01/22/17 19:43 650 MG Al Hydrox/Mg Hydrox/Simethicone (Maalox Max Susp) 15 ml Q4H PRN PO 01/22/17 02:30 02/21/17 02:29 Magnesium Hydroxide (Milk Of Magnesia Susp) 30 ml Q6H PRN PO 01/22/17 02:30 02/21/17 02:29 01/22/17 19:43 30 ML Polyethylene (Miralax Powder Packet) 17 gm DAILY PRN PO 01/22/17 02:30 02/21/17 02:29 Ondansetron HCl 4 mg 4 mg Q6H PRN IV 01/22/17 02:30 02/21/17 02:29 Potassium Chloride/Sodium Chloride (Nss + 20meq KCl 1000ml) 1,000 ml @ 125 mls/hr Q8H IV 01/22/17 06:15 02/21/17 06:14 01/23/17 13:19 125 MLS/HR Objective Vital Signs Date Time Temp Pulse Resp B/P Pulse Ox O2 Delivery O2 Flow Rate FiO2 01/23/17 07:32 36.8 59 18 143/83 98 Room Air 01/23/17 06:58 Room Air 01/22/17 23:25 Room Air 01/22/17 23:24 36.4 44 16 145/75 97 Room Air 01/22/17 16:32 Room Air 01/22/17 15:46 36.7 60 14 114/75 99 Room Air Physical Exam General Appearance: WD/WN, no apparent distress Eyes: normal inspection, EOMI, sclerae normal ENT: normal ENT inspection, hearing grossly normal, pharynx normal Neck: supple, no adenopathy, no JVD, trachea midline Respiratory/Chest: chest non-tender, lungs clear, normal breath sounds, no respiratory distress, no accessory muscle use Cardiovascular: regular rate, rhythm, no edema, no gallop, no JVD, no murmur Abdomen: normal bowel sounds, non tender, soft, no organomegaly Extremities: normal range of motion, non-tender, normal inspection, no pedal edema, no calf tenderness, pelvis stable Neurologic/Psychiatric: private banker II-XII nml as tested, no motor/sensory deficits, alert, normal mood/affect, oriented x 3 Skin: normal color, warm/dry, no rash Lymphatic: no adenopathy Laboratory Results Last 24 Hours Test 01/23/17 07:15 01/23/17 14:28 White Blood Count 7.16 K/uL Red Blood Count 4.63 M/uL Hemoglobin 13.1 g/dL Hematocrit 37.6 % Mean Corpuscular Volume 81.2 fL Mean Corpuscular Hemoglobin 28.3 pg Mean Corpuscular Hemoglobin Concent 34.8 g/dl Platelet Count 233 K/uL Mean Platelet Volume 9.7 fL Neutrophils (%) (Auto) 69.8 % Lymphocytes (%) (Auto) 20.7 % Monocytes (%) (Auto) 7.1 % Eosinophils (%) (Auto) 2.2 % Basophils (%) (Auto) 0.1 % Neutrophils # (Auto) 4.99 K/uL Lymphocytes # (Auto) 1.48 K/uL Monocytes # (Auto) 0.51 K/uL Eosinophils # (Auto) 0.16 K/uL Basophils # (Auto) 0.01 K/uL RDW Standard Deviation 37.9 fL RDW Coefficient of Variation 12.7 % Immature Granulocyte % (Auto) 0.1 % Immature Granulocyte # (Auto) 0.01 K/uL Sodium Level 142 mmol/L 144 mmol/L Potassium Level 3.6 mmol/L 3.8 mmol/L Chloride Level 110 mmol/L 108 mmol/L Carbon Dioxide Level 25 mmol/L 26 mmol/L Anion Gap 7.0 mmol/L 10.0 mmol/L Blood Urea Nitrogen 11 mg/dl 11 mg/dl Creatinine 1.70 mg/dl 1.90 mg/dl Est Creatinine Clear Calc Drug Dose 81.7 ml/min 73.1 ml/min Estimated GFR () 66.3 57.9 Estimated GFR (Non- 57.2 50.0 BUN/Creatinine Ratio 6.4 5.6 Random Glucose 91 mg/dl 105 mg/dl Calcium Level 8.7 mg/dl 8.3 mg/dl Total Bilirubin 0.9 mg/dl Aspartate Amino Transf (AST/SGOT) 11 U/L Alanine Aminotransferase (ALT/SGPT) 16 U/L Alkaline Phosphatase 49 U/L Total Protein 6.3 gm/dl Albumin 3.3 gm/dl Globulin 3.0 gm/dl Albumin/Globulin Ratio 1.1 Assessment and Plan 21-year-old male who presents with acute kidney injury, and findings of splenomegaly on CT scan Acute kidney injury: hemodynamic injury from THON vs AIN from NSAID use Cr initially 1.9, down to 1.7 this AM, however, back up to 1.9 this afternoon based on his story of being normal prior to THON, suspect a degree of rhabdomyolysis earlier in the week, concurrent use of NSAIDs his urine was + blood but no RBC, still with trace myoglobin? full work up sent, reference labs appreciate nephrology consult urine sediment bland, no evidence of obstruction keep overnight with IV fluids, d/c when Cr < 1.5 Splenomegaly could be a result of viral infection, did have mild tenderness LUQ, none in RUQ, resolved today also with mesenteric adenitis, viral? viral work up sent out does have a h/o [place] in the past normal CBC Mesenteric Adenitis - CT finding, may be cause/contributing factor to right-sided pain - Supportive management Hypokalemia - K 3.3 on admission - resolved DVT prophylaxis - SCD - NIRMAL stockings - Hold off on pharmacological anticoagulation at this time CODE STATUS - Level I full code - Designates his mother to be his substitute decision-maker if he cannot make decisions for himself
[2017-01-23 15:47] VITALS: BP 126/75; PULSE 52; TEMP 36.8; O2SAT 95
[2017-01-23 22:56] VITALS: BP 133/82; PULSE 44; TEMP 36.8; O2SAT 99
[2017-01-24] MEDS: NSS + 20MEQ KCL 1000ML 1,000 ML IV SCH (05:07)
[2017-01-24 07:19] VITALS: BP 142/80; PULSE 50; TEMP 36.7; O2SAT 98
[2017-01-24 07:44] LABS: BASO % 0.1 %; BASO ABS # 0.01 K/uL (0-0.2); COMPLETE YES; EOS % 2.5 %; HEMATOCRIT 36.2 % (42-52); IG% 0.1 %; MEAN CELL VOLUME 81.3 fL (80-100); MEAN CORPUSCULAR HEMOGLOBIN 28.5 pg (25-34); MEAN CORPUSCULAR HGB CONC 35.1 g/dl (32-36); MEAN PLATELET VOLUME 9.1 fL (7.4-10.4); MONO % 8.8 %; NEUT % 63.5 %; PLATELET COUNT 229 K/uL (130-400); RED BLOOD COUNT 4.45 M/uL (4.7-6.1); WHITE BLOOD COUNT 6.79 K/uL (4.8-10.8)
[2017-01-24 08:22] LABS: BUN/CREATININE RATIO 5.4 (10-20); CALCIUM 8.7 mg/dl (8.5-10.1); POTASSIUM 3.9 mmol/L (3.5-5.1)
[2017-01-24 10:44] LABS: URINE APPEARANCE CLEAR (CLEAR); URINE BILIRUBIN NEG (NEG); URINE COLOR YELLOW; URINE NITRITE NEG (NEG); URINE PH 6.5 (4.5-7.5); URINE SPECIFIC GRAVITY 1.001 (1.000-1.030); UROBILINOGEN NEG (NEG)
[2017-01-24 10:46] LABS: MANUAL MICROSCOPIC REQUIRED? NO; REVIEW REQ? NO
[2017-01-24] MEDS ORDERED: ZNTT/150 PO ×2 (10:59)
--- NOTE | 2017-01-24 11:09 | Discharge Instructions ---
Discharge Instructions Admission Reason for Admission: Acute Kidney Injury, Mild splenomegaly Discharge Discharge Diagnosis / Problem: Acute kidney injury, likely NSAID induced, splenomegaly, non-specific Discharge Goals Goal(s): Improve function, Diagnostic testing (repeat lab work outpatient) Activity Recommendations Activity Limitations: resume your previous activity Lifting Limitations: none Exercise/Sports Limitations: until after follow-up appointment (no contact sports, need follow up ultrasound spleen in 1 month) May Resume Sexual Activity: when tolerated Shower/Bathe: no limitations Driving or Machine Use: no limitations . Instructions / Follow-Up Instructions / Follow-Up Medications: - RANITIDINE: 150mg twice a day for epigastric pain, take for 14 days and stop Acute kidney injury: long discussions with Dr. Chavez regarding etiology, most likely NSAID induced which can take days to weeks to resolve, your Cr has fluctuated between 1.7 and 2.0 during admission. Stay well hydrated, avoid all NSAIDs (ibuprofen, Aleve, etc.). Tylenol okay. You are making adequate urine and your electrolytes are stable. Full work up does not show any concerns for etiologies such as nephrotic syndrome, glomerulonephritis, infection or urinary obstruction. Abdominal/flank pain: non-specific, most likely a viral etiology, had some splenomegaly on CT scan. All of your viral titers are pending, please have your family doctor request records for follow up lab results in another week. As discussed, these are all send out labs and take several days to come back. Due to your spleen being enlarged, I would avoid any contact sports and would follow up with family doctor over spring and then plan to have a repeat ultrasound or CT scan in one month to document that the spleen had returned to normal size. Possible gastritis: use ranitidine for 2 weeks and then stop RECOMMEND THAT YOU DO NOT GO TO [place] FOR spring DUE TO ACUTE RENAL FAILURE, NEED TO MONITOR CONDITION FOLLOW UP - Dr. Stern, nephrology, on Saturday 01/27, you will have repeat lab work at the office, the orders have been placed if you do not hear from the office tomorrow, please call [phone] - your family doctor over spring Current Hospital Diet Patient's current hospital diet: Regular Diet Discharge Diet Recommended Diet: Regular Diet (stay well hydrated) Pending Studies Studies pending at discharge: yes List of pending studies: viral titers Laboratory Results Last Resulted CBC 01/24/17 07:20 Red Blood Count 4.45, Mean Corpuscular Volume 81.3, Mean Corpuscular Hemoglobin 28.5, Mean Corpuscular Hemoglobin Concent 35.1, Mean Platelet Volume 9.1, Neutrophils (%) (Auto) 63.5, Lymphocytes (%) (Auto) 25.0, Monocytes (%) (Auto) 8.8, Eosinophils (%) (Auto) 2.5, Basophils (%) (Auto) 0.1, Neutrophils # (Auto) 4.30, Lymphocytes # (Auto) 1.70, Monocytes # (Auto) 0.60, Eosinophils # (Auto) 0.17, Basophils # (Auto) 0.01 Last Resulted BMP 01/24/17 07:20 Medical Emergencies . Who to Call and When: Medical Emergencies: If at any time you feel your situation is an emergency, please call 911 immediately. . Non-Emergent Contact Non-Emergency issues call your: Gig Tender (Dr. Stern, [phone]) Call Non-Emergent contact if: you have any medication questions . . "Provider Documentation" section prepared by Erlin Woods. VTE Core Measure Inpt VTE Proph given/why not?: Treatment not indicated [place] Drug Monitoring Program Search Results: no issues identified
[2017-01-24 11:11] VITALS: BP 142/80; PULSE 50; TEMP 36.7; O2SAT 98
[2017-01-24 11:14] LABS: URINE PROTIEN/CREAT RATIO 0.5 (0-0.2); URINE TOTAL PROTEIN 10.4 mg/dl (0-11.9)
--- NOTE | 2017-01-24 11:49 | Nephrology Progress Note ---
Nephrology Progress Note Date of Service Jan 24, 2017. 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 On Wednesday01/18/17 he developed right flank discomfort. He describes this as a nagging back pain. He began taking ibuprofen. His discomfort failed to improve and actually worsened. He participated in [employer] but was not overly physically active. He was concerned that he was constipated and could have acute appendicitis. He presented to the [facility] ED 01/22/17 for evaluation. He required IV Toradol for pain control. Serum creatinine was found to be elevated at 1.9. Contrast negative CT did not show appendicitis or acute renal pathology. He was found to have mild splenomegaly. Urine sediment was bland. CPK was normal. Mr. Dickerson reports a decreased appetite. He has been able to keep down breakfast and ambulate in the hallway. He otherwise feels well. He currently denies fever, angina, dyspnea or abdominal pain. He his flank discomfort has resolved. He has had brisk urine output. His parents were present during my evaluation this morning. Review of Systems Constitutional: No fever Cardiovascular: No chest pain Respiratory: No dyspnea at rest Abdomen: No nausea, No pain Genitourinary - Male: No dysuria, No gross hematuria Extremities: No leg edema A complete review of systems was performed. Pertinent positives are noted above. All other systems are negative. Vital Signs Last 8 Hrs Date Time Temp Pulse Resp B/P Pulse Ox O2 Delivery O2 Flow Rate FiO2 01/24/17 11:11 36.7 50 16 98 Room Air 01/24/17 08:47 Room Air 01/24/17 07:19 36.7 50 16 142/80 98 Room Air I & O 24-Hour Column 01/24/17 08:00 Intake Total 44854 ml Output Total 5925 ml Balance 6825 ml Last Recorded Weight Weight (Kilograms): 82.600 Physical Exam General Appearance: no apparent distress Head: normocephalic, atraumatic Eyes: PERRL, EOMI Neck: no adenopathy Respiratory/Chest: lungs clear, no respiratory distress Cardiovascular: regular rate, rhythm Back: no CVA tenderness Abdomen/GI: normal bowel sounds, non tender, soft Extremities/Musculoskelatal: no calf tenderness, no pedal edema Neurologic/Psych: alert, oriented x 3 Family History Appendicitis Social History Smokeless Tobacco Use: No Alcohol Use: socially (has not comsumed alcohol in 1 month) Drug Use: none Marital Status: single Housing Status: lives with roommate Occupation: [employer] student Laboratory Results Past 24 Hours 01/24/17 07:20 Red Blood Count 4.45, Mean Corpuscular Volume 81.3, Mean Corpuscular Hemoglobin 28.5, Mean Corpuscular Hemoglobin Concent 35.1, Mean Platelet Volume 9.1, Neutrophils (%) (Auto) 63.5, Lymphocytes (%) (Auto) 25.0, Monocytes (%) (Auto) 8.8, Eosinophils (%) (Auto) 2.5, Basophils (%) (Auto) 0.1, Neutrophils # (Auto) 4.30, Lymphocytes # (Auto) 1.70, Monocytes # (Auto) 0.60, Eosinophils # (Auto) 0.17, Basophils # (Auto) 0.01 01/23/17 14:28 01/24/17 07:20 Test 01/23/17 14:28 01/24/17 00:00 01/24/17 07:20 Anion Gap 10.0 mmol/L (3-11) 3.0 mmol/L (3-11) Est Creatinine Clear Calc Drug Dose 73.1 ml/min 69.4 ml/min Estimated GFR () 57.9 54.5 Estimated GFR (Non- 50.0 47.0 BUN/Creatinine Ratio 5.6 (10-20) 5.4 (10-20) Calcium Level 8.3 mg/dl (8.5-10.1) 8.7 mg/dl (8.5-10.1) Urine Color YELLOW Urine Appearance CLEAR (CLEAR) Urine pH 6.5 (4.5-7.5) Urine Specific [place] 1.001 (1.000-1.030) Urine Protein NEG (NEG) Urine Glucose (UA) NEG (NEG) Urine Ketones NEG (NEG) Urine Occult Blood NEG (NEG) Urine Nitrite NEG (NEG) Urine Bilirubin NEG (NEG) Urine Urobilinogen NEG (NEG) Urine Leukocyte Esterase NEG (NEG) Urine Random Creatinine 22.0 mg/dl Urine Random Total Protein 10.4 mg/dl (0-11.9) Urine Protein/Creatinine Ratio 0.5 (0-0.2) White Blood Count 6.79 K/uL (4.8-10.8) Red Blood Count 4.45 M/uL (4.7-6.1) Hemoglobin 12.7 g/dL (14.0-18.0) Hematocrit 36.2 % (42-52) Mean Corpuscular Volume 81.3 fL (80-100) Mean Corpuscular Hemoglobin 28.5 pg (25-34) Mean Corpuscular Hemoglobin Concent 35.1 g/dl (32-36) Platelet Count 229 K/uL (130-400) Mean Platelet Volume 9.1 fL (7.4-10.4) Neutrophils (%) (Auto) 63.5 % Lymphocytes (%) (Auto) 25.0 % Monocytes (%) (Auto) 8.8 % Eosinophils (%) (Auto) 2.5 % Basophils (%) (Auto) 0.1 % Neutrophils # (Auto) 4.30 K/uL (1.4-6.5) Lymphocytes # (Auto) 1.70 K/uL (1.2-3.4) Monocytes # (Auto) 0.60 K/uL (0.11-0.59) Eosinophils # (Auto) 0.17 K/uL (0-0.5) Basophils # (Auto) 0.01 K/uL (0-0.2) RDW Standard Deviation 37.9 fL (36.4-46.3) RDW Coefficient of Variation 12.7 % (11.5-14.5) Immature Granulocyte % (Auto) 0.1 % Immature Granulocyte # (Auto) 0.01 K/uL (0.00-0.02) Total Bilirubin 0.9 mg/dl (0.2-1) Aspartate Amino Transf (AST/SGOT) 8 U/L (15-37) Alanine Aminotransferase (ALT/SGPT) 16 U/L (12-78) Alkaline Phosphatase 52 U/L (45-117) Total Protein 6.3 gm/dl (6.4-8.2) Albumin 3.2 gm/dl (3.4-5.0) Globulin 3.1 gm/dl (2.5-4.0) Albumin/Globulin Ratio 1.0 (0.9-2) Allergies Coded Allergies: No Known Allergies (Unverified , 01/22/17) Medications Current Inpatient Medications Medications (Trade) Dose Ordered Sig/Therese Route Start Time Stop Time Status Last Admin Dose Admin Acetaminophen (Tylenol Tab) 650 mg Q4H PRN PO 01/22/17 02:30 02/21/17 02:29 01/22/17 19:43 650 MG Al Hydrox/Mg Hydrox/Simethicone (Maalox Max Susp) 15 ml Q4H PRN PO 01/22/17 02:30 02/21/17 02:29 Magnesium Hydroxide (Milk Of Magnesia Susp) 30 ml Q6H PRN PO 01/22/17 02:30 02/21/17 02:29 01/22/17 19:43 30 ML Polyethylene (Miralax Powder Packet) 17 gm DAILY PRN PO 01/22/17 02:30 02/21/17 02:29 Ondansetron HCl 4 mg 4 mg Q6H PRN IV 01/22/17 02:30 02/21/17 02:29 01/23/17 21:18 4 MG Potassium Chloride/Sodium Chloride (Nss + 20meq KCl 1000ml) 1,000 ml @ 125 mls/hr Q8H IV 01/22/17 06:15 02/21/17 06:14 01/24/17 05:07 125 MLS/HR Impression (1) Acute kidney injury (2) Hepatosplenomegaly (3) Right flank pain 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 He has had recent exposure to NSAID therapy. Urine sediment is benign. Urinary protein excretion is normal. Contrast negative abdominal CT was negative for renal obstruction. Patient remains nonoliguric. Recommendations MUSA: -- Probable hemodynamic injury or AIN related to NSAID use -- Nelson urine sediment. No significant proteinuria -- No renal obstruction on abdominal imaging -- Remains nonoliguric -- Volume status and electrolyte balance remain acceptable -- Kidney function remains stable BACK PAIN: -- Resolved. Monitor clinically GI: -- Patient has mild splenomegally. CMV, EBV, Lyme disease, Parvo virus B19 coxsackie studies pending -- CT reports a few enlarged mesenteric lymph nodes. No bowel wall thickening or appendicitis. Monitor clinically OTHER: -- Hospital course discussed with patient, his parents and Dr. Woods of the [facility] Hospitalist Service. MUSA is likely related to hemodynamic injury associated w/ NSAID therapy. Urine sediment is bland. Abdominal imaging is negative for structural abonormality. Patient remains nonoliguric. Electrolyte balance is acceptable. His back discomfort has resolved. Patient is tolerating his diet and able to ambulate in the hallway. He is anxious to return to [facility] so that he can attend classes next week. He understands that if there is any decline in his physical condition that he will need to return to the hospital for reevaluation. His parents are in agreement. The patient was advised not to travel over spring until his kidney function has fully recovered. Orders have been placed in [facility] EMR for follow up w / Dr. Stern 01/27/17 at 3 pm. Patient has orders in EMR for CMP, CBC w/ diff , urinalysis w/ microscopy, UPCR and ESR one day prior to office visit. He was given my business card with contact information for the [facility] Department of Nephrology. Patient was provided w/ written doctor's excuse for missed classes last Wednesday and to obtain airline reimbursement for travel over spring.
--- NOTE | 2017-01-24 12:06 | Discharge Summary ---
Discharge Summary Date of Service Jan 24, 2017. Discharge Summary Admission Date: Jan 22, 2017 at 02:33 Discharge Date: Jan 24, 2017 Discharge Disposition: Home Principal Diagnosis: Acute kidney injury Problems/Secondary Diagnoses: Right flank pain Splenomegaly Procedures: CT abdomen/pelvis: mild splenomegaly, mesenteric adenitis, no other findings Consultations: Nephrology Medication Reconciliation New Medications: Ranitidine (Zantac) 150 Mg Tab 150 MG PO BID for 14 Days, #28 TAB Discharge Exam Patient feeling well today, able to keep down breakfast. Ambulated in the cardoza way. Patient and his mother and father had a long conversation with Dr. Chavez regarding his acute kidney injury. Cr went up to 2.[address] 1.[address]. Dr. Chavez feels that it is due to NSAID use this past week, will take time to resolve. Patient would like to go home with close follow up, he plans to see Dr. Stern in the office this week. Discussed no contact sports due to splenomegaly. Discussed that viral titers all still pending. Review of Systems: Constitutional: + fatigue, + weakness, No chills, No fever, No problem reported, No sweats, No weight loss Eyes: No diplopia, No discharge, No eye pain, No problem reported, No redness, No worsening of vision ENT: No dental problems, No hearing loss, No nasal symptoms, No problem reported, No sore throat, No tinnitus, No trouble swallowing, No unusual epistaxis Respiratory: No cough, No dyspnea at rest, No dyspnea on exertion, No hemoptysis, No problem reported, No shortness of breath, No sputum, No wheezing Cardiovascular: No PND, No chest pain, No claudication, No edema, No orthopnea, No palpitations, No problem reported Abdomen: + constipation, + nausea, No GI bleeding, No diarrhea, No pain, No vomiting Musculoskeletal: No calf pain, No joint pain, No muscle pain, No problem reported, No swelling Genitourinary - Male: No dysuria, No hematuria, No urinary frequency, No urinary hesitancy, No urinary incontinence, No urinary retention, No urinary urgency Neurologic: No balance problems, No memory loss, No numbness/tingling, No paralysis, No problem reported, No vertigo, No weakness Psychiatric: No anhedonism, No anxiety, No depression symptoms, No insomnia , No problem reported, No substance abuse Endocrine: No excessive thirst, No excessive urination, No fatigue, No problem reported Hematologic / Lymphatic: No abnormal bleeding/bruising, No clotting problems , No night sweats, No problem reported, No swollen lymph nodes Integumentary: No bleeding, No color change, No itch, No new/changing skin lesions, No problem reported, No rash Physical Exam: General Appearance: WD/WN, no apparent distress Eyes: normal inspection, EOMI, sclerae normal ENT: normal ENT inspection, hearing grossly normal, pharynx normal Neck: supple, no adenopathy, no JVD, trachea midline Respiratory/Chest: chest non-tender, lungs clear, normal breath sounds, no respiratory distress, no accessory muscle use Cardiovascular: regular rate, rhythm, no edema, no gallop, no JVD, no murmur , normal peripheral pulses Abdomen / GI: normal bowel sounds, non tender, soft, no organomegaly ( spleen cannot be palpated on exam), no pulsatile mass Extremities: normal inspection, no calf tenderness, normal capillary refill , no pedal edema, normal range of motion Neurologic/Psychiatric: carpenter packing II-XII nml as tested, no motor/sensory deficits , alert, normal mood/affect, normal reflexes, oriented x 3 Skin: normal color, warm/dry, no rash Lymphatic: no adenopathy Hospital Course 21-year-old male who presents with acute kidney injury, and findings of splenomegaly on CT scan Acute kidney injury: hemodynamic injury from THON vs AIN from NSAID use Cr initially 1.9, down to 1.7 yesterday, up to 2.0 today, making adequate urine, electrolytes stable based on his story of being normal prior to , suspect a degree of rhabdomyolysis earlier in the week, concurrent use of NSAIDs his urine was + blood but no RBC, still with trace myoglobin? full work up sent, reference labs appreciate nephrology consult urine sediment bland, no evidence of obstruction told patient to avoid NSAIDs in future, use Tylenol for pain will d/c home with close follow up with Dr. Stern on Wednesday with repeat lab work Splenomegaly could be a result of viral infection, did have mild tenderness LUQ, none in RUQ, resolved yesterday also with mesenteric adenitis, viral? viral work up sent out (Coxsackie, EBV, CMV, Parvovirus all still pending) hepatitis B/C negative, Lyme negative his mother reports a history of mono in the past, however, Monoscreen negative? normal CBC discussed with patient and his family, request that his family physician, Dr. Alvarez follow up on viral work up instructed to avoid contact sports for one month, will have repeat US of spleen to document resolution Mesenteric Adenitis - CT finding, may be cause/contributing factor to right-sided pain - Supportive management Hypokalemia - K 3.3 on admission - resolved DVT prophylaxis - SCD - NIRMAL stockings - Hold off on pharmacological anticoagulation at this time CODE STATUS - Level I full code - Designates his mother to be his substitute decision-maker if he cannot make decisions for himself Total Time Spent: Greater than 30 minutes This includes examination of the patient, discharge planning, medication reconciliation, and communication with other providers. Discharge Instructions Please refer to the electronic Patient Visit Report (Discharge Instructions) for additional information. Follow-Up Dr. Stern on 01/[address] Alvarez next week over spring, follow up on viral titers US of spleen in one month to document resolution of splenomegaly Additional Copies To Tarik Alvarez D.O.; Trixie Stern MD; [facility]
[2017-01-27 19:42] LABS: COXSACKIE A10 <1:8; COXSACKIE A16 <1:8; COXSACKIE A2 <1:8; COXSACKIE A4 <1:8; COXSACKIE A7 <1:8; COXSACKIE A9 <1:8; COXSACKIE B2 <1:8 (<1:8); COXSACKIE B3 <1:8 (<1:8); COXSACKIE B4 <1:8 (<1:8); COXSACKIE B5 <1:8 (<1:8); CYTOMEGALOVIRUS IGG AB <0.91; PARVOVIRUS IgG INDEX 0.4 (<0.9); PARVOVIRUS IgM INDEX 0.1 (<0.9)
== END 2017-01-24 11:50 | disposition home or self-care (01) | DRG 683 ==
LOC: ENRESERVDT → ENRESERVTM → C.EDB 22:59 → C.MSN 01-22 02:33
PROVIDERS: ADMIT Student in an Organized Health Care Education/Training Program; ATTEND Internal Medicine
DX: N17.9 Acute kidney failure, unspecified (principal); M62.82 Rhabdomyolysis; N10 Acute pyelonephritis; T39.395A Adverse effect of other nonsteroidal anti-inflammatory drugs [NSAID], initial encounter; R31.9 Hematuria, unspecified; M54.5 Low back pain; R10.9 Unspecified abdominal pain; R16.1 Splenomegaly, not elsewhere classified; B34.9 Viral infection, unspecified; I88.0 Nonspecific mesenteric lymphadenitis; E87.6 Hypokalemia; Z86.19 Personal history of other infectious and parasitic diseases

== ENCOUNTER → 2017-01-26 | Outpatient (CLI) | payer BC ==
[~2017-01-26] MED LIST: ZNTT/150 PO
[2017-01-26 14:21] LABS: BASO % 0.2 %; BASO ABS # 0.01 K/uL (0-0.2); COMPLETE YES; EOS % 2.5 %; HEMATOCRIT 37.5 % (42-52); IG% 0.3 %; LYMPH % 27.7 %; LYMPH ABS # 1.79 K/uL (1.2-3.4); MEAN CELL VOLUME 80.5 fL (80-100); MEAN CORPUSCULAR HEMOGLOBIN 28.8 pg (25-34); MEAN CORPUSCULAR HGB CONC 35.7 g/dl (32-36); MEAN PLATELET VOLUME 9.6 fL (7.4-10.4); MONO % 9.7 %; NEUT % 59.6 %; PLATELET COUNT 283 K/uL (130-400); RED BLOOD COUNT 4.66 M/uL (4.7-6.1); WHITE BLOOD COUNT 6.47 K/uL (4.8-10.8)
[2017-01-26 14:34] LABS: ALT/SGPT 27 U/L (12-78); AST/SGOT 15 U/L (15-37); BLOOD UREA NITROGEN 18 mg/dl (7-18); BUN/CREATININE RATIO 10.1 (10-20); CALCIUM 8.7 mg/dl (8.5-10.1); CARBON DIOXIDE 30 mmol/L (21-32); CHLORIDE 103 mmol/L (98-107); GLUCOSE 90 mg/dl (70-99); POTASSIUM 3.9 mmol/L (3.5-5.1); SODIUM 142 mmol/L (136-145)
[2017-01-26 14:37] LABS: ALB/GLOB RATIO 1.2 (0.9-2); ALKALINE PHOSPHATASE 56 U/L (45-117)
[2017-01-26 14:41] LABS: URINE PROTIEN/CREAT RATIO 0.2 (0-0.2); URINE TOTAL PROTEIN 9.5 mg/dl (0-11.9)
[2017-01-26 14:42] LABS: URINE APPEARANCE CLEAR (CLEAR); URINE BILIRUBIN NEG (NEG); URINE COLOR YELLOW; URINE EPITHELIAL CELL AUTO 0-5 /lpf (0-5); URINE NITRITE NEG (NEG); URINE PH 5.5 (4.5-7.5); URINE SPECIFIC GRAVITY 1.003 (1.000-1.030); UROBILINOGEN NEG (NEG)
[2017-01-26 14:47] LABS: MANUAL MICROSCOPIC REQUIRED? NO; REVIEW REQ? NO
== END | disposition home or self-care (01) ==
LOC: C.LAB1850 13:06
PROVIDERS: ATTEND Internal Medicine Nephrology
DX: N17.9 Acute kidney failure, unspecified (principal)

== ENCOUNTER → 2017-02-10 | Outpatient (CLI) | payer BC ==
[2017-02-10 16:46] LABS: BASO % 0.3 %; BASO ABS # 0.02 K/uL (0-0.2); COMPLETE YES; HEMATOCRIT 40.4 % (42-52); IG% 0.3 %; LYMPH % 35.7 %; LYMPH ABS # 2.05 K/uL (1.2-3.4); MEAN CELL VOLUME 81.8 fL (80-100); MEAN CORPUSCULAR HEMOGLOBIN 27.7 pg (25-34); MEAN CORPUSCULAR HGB CONC 33.9 g/dl (32-36); MEAN PLATELET VOLUME 9.3 fL (7.4-10.4); MONO % 7.7 %; PLATELET COUNT 331 K/uL (130-400); RED BLOOD COUNT 4.94 M/uL (4.7-6.1); WHITE BLOOD COUNT 5.74 K/uL (4.8-10.8)
[2017-02-10 16:49] LABS: URINE APPEARANCE CLEAR (CLEAR); URINE BILIRUBIN NEG (NEG); URINE COLOR YELLOW; URINE EPITHELIAL CELL AUTO 0-5 /lpf (0-5); URINE NITRITE NEG (NEG); URINE PH 6.5 (4.5-7.5); URINE SPECIFIC GRAVITY 1.012 (1.000-1.030); UROBILINOGEN NEG (NEG)
[2017-02-10 16:51] LABS: MANUAL MICROSCOPIC REQUIRED? NO; REVIEW REQ? NO
[2017-02-10 17:01] LABS: BLOOD UREA NITROGEN 13 mg/dl (7-18); BUN/CREATININE RATIO 14.8 (10-20); CALCIUM 9.2 mg/dl (8.5-10.1); CARBON DIOXIDE 31 mmol/L (21-32); CHLORIDE 103 mmol/L (98-107); GLUCOSE 96 mg/dl (70-99); POTASSIUM 3.8 mmol/L (3.5-5.1); SODIUM 139 mmol/L (136-145)
[2017-02-10 17:02] LABS: PHOSPHORUS 3.6 mg/dl (2.5-4.9)
[2017-02-10 17:08] LABS: URINE PROTIEN/CREAT RATIO 0.1 (0-0.2)
== END | disposition home or self-care (01) ==
LOC: C.LAB1850 14:49
PROVIDERS: ATTEND Internal Medicine Nephrology
DX: N17.9 Acute kidney failure, unspecified (principal)